=== PATIENT | female | born 1995 | race Caucasian/White ===

== ENCOUNTER 2017-05-04 02:51 | Inpatient (IN) ==
[2017-05-04] MEDS ORDERED: Pantoprazole 40 MG in 0.9 % Sodium Chloride Mini Bag 100 ML IVC SCH (06:15)
[2017-05-04] MEDS: Pantoprazole 80 MG in 0.9 % Sodium Chloride 250 ML IVC SCH ×2 (08:25→22:14)
[2017-05-04] MEDS: D5% in 0.9% NACL 1,000 ML IVC SCH ×3 (08:25→22:25)
--- NOTE | 2017-05-04 10:50 | Internal Med History&Physical ---
<RafiqMehran - Last Filed: 05/04/17 15:45> Date of Encounter: 05/04/17 Time of Encounter: 10:48 Assessment and Plan (1) GI bleed Current visit: No Status: Acute Given her melena and hematochezia it certainly appears to be upper GI source Will consult surgery for possible EGD Continue with NPO and maintenance fluids until post-procedure PPI drip and carafate per surgery Repeat Hb was 7.1, down from 8.7 initially; will check H/H after she receives 1 unit pRBC Qualifiers: GI bleed type/associated pathology: gastrointestinal hemorrhage with hematemesis Qualified Code(s): K92.0 - Hematemesis (2) Acute blood loss anemia Current visit: Yes Status: Acute Plan as above with surgery consult for possible EGD Will closely monitor vitals and Hb/Hct after receiving transfusion (3) Anxiety Current visit: Yes Status: Chronic Stable, continue home Celexa and Trazodone Internal Medicine - H&P: HPI Chief complaint: hematemesis, melena Admitted From: Home Plans for Post Hospital Care: Home History of present illness: Ms. Balderas is a 21 year old female who presents from [place] ED after an episode of melena and hematemesis last night at 10 PM. She states she only had one episode of dark black stool and shortly after became nauseous and had 3 episodes of bright red vomiting. She denied any pain during vomiting or defecation, and did not have any syncope or lightheadedness. She does admit to using Ibuprofen about twice a week for several years for back pain and is also on Citalopram and Trazadone for anxiety, but otherwise has no medical history. She does not report any family history of bleeding disorders but grandmother states she had ulcers when she was younger. Patient denies recent changes in medication, diet, or travel. Does not have any chest pain, shortness of breath, current nausea, fever, chills. Past Med Surg Social Fam HX - Past Medical History Medical history: other Psychiatric history: anxiety - Social History Smoking Status: Never smoker Smokeless Tobacco Status: No Alcohol use: none Drug use: none - Family History Mother Hx Family Endocrine Disorder: Yes (hypothyroid) Father Living Status: Still Living Grandmother Living Status: Still Living Hx Family GI Disorders: Yes (Duondenal ulcer at a young age) Internal Medicine - H&P: Meds Citalopram [CeleXA] 20 mg PO DAILY 05/04/17 [History] traZODone [TraZODone] 50 mg PO HS 05/04/17 [History] 3 Allergy/AdvReac Type Severity Reaction Status Date / Time No Known Allergies Allergy Verified 05/04/17 06:48 All Systems PM: A 10-system review of systems was performed and is negative for pertinent findings except as documented above in the HPI. - Constitutional Constitutional: lethargy, no chills, no fever(s), no night sweats - EENT Eyes: no change in vision, no discharge, no pain, no photophobia Ears: no ear discharge, no ear pain, no tinnitus Nose, mouth and throat: no dysphagia, no nasal discharge, no neck pain, no sore throat - Cardiovascular Cardiovascular ROS IM: no chest pain, no diaphoresis, no dyspnea, no lightheadedness, no palpitations, no syncope - Respiratory Respiratory: no cough, no dyspnea, no wheezing, no excessive phlegm production - Gastrointestinal Gastrointestinal: hematemesis, melena, nausea, vomiting, no abdominal pain, no diarrhea, no hematochezia - Genitourinary Genitourinary: no change in urinary stream, no dysuria, no flank pain, no hematuria - Musculoskeletal Musculoskeletal ROS IM: no numbness, no tingling - Integumentary Integumentary IM: no rash, no unusual bruising - Neurological Neurological ROS: no confusion, no convulsions, no focal weakness, no numbness, no tingling, no tremor(s) - Hematologic/Lymphatic Hematologic/Lymphatic: no easy bruising - Constitutional Vitals: Temp Pulse Resp BP Pulse Ox 98.3 F 104 14 101/79 96 05/04/17 07:37 05/04/17 07:37 05/04/17 07:37 05/04/17 07:37 05/04/17 07:37 General appearance: Present: cooperative, pleasant, no acute distress, answers questions appropriately - Head Head exam: Present: atraumatic, normocephalic - Eye Eye exam: Present: PERRL, conjuntiva pink, sclera anicteric - Neck Neck exam general surgery: Present: supple, trachea midline. Absent: lymphadenopathy - Respiratory Respiratory exam: Present: CTAB. Absent: accessory muscle use, rales, rhonchi, wheezes - Cardiovascular Cardiovascular exam: Present: RRR, +S1, +S2. Absent: diastolic murmur, gallop, rubs, systolic murmur - GI/Abdominal GI/Abdominal exam: Present: normal bowel sounds, soft, no peritoneal signs. Absent: distended, tenderness - Extremities Exam Extremities exam: Present: warm, radial pulses palpable and symmetrical. Absent : calf tenderness, cyanotic, pedal edema - Neurological Exam Neurological exam: Present: alert, no focal deficits. Absent: facial droop, speech deficit - Skin Skin exam: Present: dry, intact Internal Med - H&P Results - Labs CBC & Chem 7: 05/04/17 11:16 <Desean Alva - Last Filed: 05/04/17 18:36> Date of Encounter: 05/04/17 Internal Medicine - H&P: HPI History of present illness: Ms. Balderas is a 21 year old female All Systems PM: A 10-system review of systems was performed and is negative for pertinent findings except as documented above in the HPI. - Constitutional Vitals: Temp Pulse Resp BP Pulse Ox 98.3 F 102 16 132/86 100 05/04/17 17:17 05/04/17 17:17 05/04/17 17:02 05/04/17 17:17 05/04/17 17:17 Internal Med - H&P Results - Labs CBC & Chem 7: 05/04/17 16:11 Labs: Short CBC 05/04/17 05/04/17 Range/Units 11:16 16:11 WBC 7.6 (4.3-11.1) K/mcL Hgb 7.1 L D 6.8 L (11.5-15.4) g/dL Hct 22.4 L 21.7 L (35.3-44.9) % Plt Count 318 (140-400) K/mcL Neutrophils # 4.5 (1.6-8.9) K/mcL - Impressions ITS Impressions KUB X-Ray 05/04/17 16:01 IMPRESSION: Enteric tube in the stomach as above. No evidence of bowel obstruction. D/ / Rogers Lopez MD / Rogers Lopez MD Interpreting Provider: Rogers Lopez MD - Attending Attestation I conducted a face to face diagnostic evaluation of this patient and my medical decision-making was reviewed with the Resident Physician, Dr Mehran Conroy. I agree with the documented findings, disposition and treatment plan as described except to the extent set forth below: Patient here for GI bleed. She will be nothing by mouth. IV Protonix. IV fluids. Consult to surgery. I discussed the case with surgery. They are planning for EGD today. Desean Alva MD
[2017-05-04] MEDS ORDERED: Ondansetron 4 MG/2 ML VIAL IVP PRN (10:55)
[2017-05-04] MEDS ORDERED: Naloxone 0.4 MG/ML INJ IVP PRN (10:55)
[2017-05-04] MEDS ORDERED: Acetaminophen 325 MG TABLET PO PRN (10:55)
[2017-05-04] MEDS ORDERED: 0.9 % Sodium Chloride 1,000 ML IVC SCH (11:00)
--- NOTE | 2017-05-04 11:14 | Anesthesia Evaluation PreOp ---
Date of Encounter: 05/04/17 Time of Encounter: 11:12 - Past History Planned Operation: EGD Cardiac History: Denies any Significant Hx Pulmonary History: Denies Any Significant HX POT ROOM SUPERVISOR History: Denies Any Significant HX Other Medical History: Denies Any Significant HX Anesthesia History: Past Anesthesia (none) Alcohol Use: none Drug use: none Medications and Allergies Citalopram [CeleXA] 20 mg PO DAILY 05/04/17 [History] traZODone [TraZODone] 50 mg PO HS 05/04/17 [History] 3 Allergy/AdvReac Type Severity Reaction Status Date / Time No Known Allergies Allergy Verified 05/04/17 06:48 - Meds/Allergy Pre-op Review Medications Reviewed: Yes Allergies Reviewed: Yes Beta Blockers on Current Med List: No Anesthesia Exam Selected Entries 05/04/17 10:53 Temperature 98.5 F Pulse Rate 102 Respiratory Rate 17 Blood Pressure 110/75 O2 Sat by Pulse Oximetry 100 Weight: 68kg NPO (# of Hours): 8 - POT ROOM SUPERVISOR LOC: Oriented POT ROOM SUPERVISOR Motor: Normal RUE, Normal LUE, Normal RLE, Normal LLE, Normal Face POT ROOM SUPERVISOR Sensory: Normal: RUE, LUE, RLE, LLE, Face - Cardiac Rhythm: Regular Murmur: None - Pulmonary Breath Sounds: bilateral Clear Respiratory Effort: Symmetrical Anesthesia Assess/Plan ASA Score: 1 Modified Catherine Scale for Level of Consciousness: Cooperative, oriented, and tranquil Anesthetic Plan: MAC Monitoring Plan: Standard Monitors Recovery Plan: Other (agrees to MAC)
[2017-05-04 11:48] LABS: Basophils % 0.3 %; Eosinophils # 0.2 K/mcL (0.0-0.6); Eosinophils % 2.6 %; Hematocrit 22.4 % (35.3-44.9); Hemoglobin 7.1 g/dL (11.5-15.4); Immature Granulocytes % 0.5 % (0-4); Lymphocytes # 2.3 K/mcL (0.6-4.6); Lymphocytes % 30.4 %; Mean Corpuscular HGB Conc 31.7 g/dL (31.6-35.5); Mean Corpuscular Hemoglobin 24.4 pg (28.0-33.3); Mean Platelet Volume 11.1 fL (9.4-12.4); Monocytes # 0.6 K/mcL (0.0-1.3); Monocytes % 7.9 %; Neutrophils # 4.5 K/mcL (1.6-8.9); Platelet Count 318 K/mcL (140-400); Red Blood Count 2.91 M/mcL (3.82-4.97); Red Cell Distribution Width 16.5 % (11.5-14.5); Segmented Neutrophils % 58.3 %
[2017-05-04 12:15] LABS: % Iron Saturation 5 % (15-50); Ferritin < 8 ng/ml (10-120); Iron 17 mcg/dL (50-170); Transferrin 257 mg/dL (203-362)
--- NOTE | 2017-05-04 14:07 | General Surgery Consult Note ---
Date of Encounter: 05/04/17 Time of Encounter: 14:00 Assessment and Plan (1) GI bleed Current Visit: No Status: Acute NPO for endoscopy IV fluids- 125ml/hour 1 Units of PRBC ordered per the hospitalist Monitor Hgb/Hct PPI therapy Carafate QID H. Pylori testing Plan for EGD with Dr. Callahan- risks, benefits, alternatives, expected outcomes were reviewed with the patient and she is in agreement to proceed with endoscopy. Qualifiers: GI bleed type/associated pathology: gastrointestinal hemorrhage with hematemesis Qualified Code(s): K92.0 - Hematemesis (2) Acute blood loss anemia Current Visit: Yes Status: Acute Hgb- 8.7>7.1 1 units of PRBC ordered per hospitalist Monitor Hgb/Hct History of Present Illness Consult date: 05/04/17 Reason for consult: other (GI bleeding) Requesting physician: Desean Alva History of present illness: Ms. Balderas is a very pleasant 21 year old female who presented to [place] ED last evening with complaints of vomiting up bright red blood. She was transferred to [facility] for further workup and treatment. Her hemoglobin on initial presentation was 8.7 and her repeat level today is 7.1. She reports that she first went to the bathroom and had a bowel movement which she noticed was black in color. She states this was abnormal for her but she did not think too much about it. She states that she laid down to go to bed and she had an overwhelming sense of nausea. She states that she went to the bathroom and vomited large amounts of bright red blood on 4 different occasions. She admits to some cramping abdominal pain at that time but she states that she has no abdominal pain today. She has had no further bowel movements today. She denies ever having symptoms like this in the past. She states that her appetite is normal and that she feels like she could eat today. She is requesting macaroni and cheese. She did feel lightheaded and dizzy after the episodes of vomiting last evening but states that this has improved today. She denies any syncope. She denies any chest pain or shortness of breath. She denies any recent fevers or chills. She states that she does take ibuprofen on and off for the last several years for management of headaches and back discomfort. She has never had an endoscopy procedure complete before. Past Med Surg Social Fam HX - Past Medical History Source: patient Medical history: migraine, other (back pain) Psychiatric history: anxiety - Past Surgical History Surgical History: other (Tonsillectomy) - Social History Smoking Status: Never smoker Smokeless Tobacco Status: No Alcohol use: none Drug use: none Occupational status: student Current living situation: Home - Independent Activity Level: Independent ambulation - Family History Mother Living Status: Still Living Hx Family Endocrine Disorder: Yes (hypothyroid) Father Living Status: Still Living Grandmother Living Status: Still Living Hx Family GI Disorders: Yes (Duondenal ulcer at a young age) Medications and Allergies Citalopram [CeleXA] 20 mg PO DAILY 05/04/17 [History] traZODone [TraZODone] 50 mg PO HS 05/04/17 [History] 3 Allergy/AdvReac Type Severity Reaction Status Date / Time No Known Allergies Allergy Verified 05/04/17 06:48 Review of Systems All systems PM: reviewed and no additional remarkable complaints except as stated (in the HPI) All systems PM: A 10-system review of systems was performed and is negative for pertinent findings except as documented above in the HPI. General Surgery Exam Initial Vital Signs Temp Pulse Resp BP Pulse Ox 98.8 F 114 16 125/79 100 05/04/17 05:07 05/04/17 05:07 05/04/17 05:07 05/04/17 05:07 05/04/17 05:07 - General physical appearance well developed, well nourished, no distress, no pain - Eyes PERRL, normal ocular movement, pale - ENT normal mucosa, atraumatic, normocephalic - Neck trachea midline - Respiratory normal expansion, normal respiratory effort, clear to auscultation - Cardiovascular Cardiovascular exam: Present: tachycardia - Abdomen Abdomen general surgery: Present: bowel sounds present, soft, non tender - Integumentary Integumentary general surgery: Present: warm and dry - Neurologic Present: CN 2-12 grossly intact - Musculoskeletal Present: normal gait, normal posture - Psychiatric Psychiatric general surgery: Present: appropriate, oriented to person, oriented to place, oriented to time, speech is normal, memory intact Exam Initial Vital Signs Temp Pulse Resp BP Pulse Ox 98.8 F 114 16 125/79 100 05/04/17 05:07 05/04/17 05:07 05/04/17 05:07 05/04/17 05:07 05/04/17 05:07 Results - Labs 05/04/17 11:16 Abnormal lab results RBC 2.91 M/mcL (3.82-4.97) L 05/04/17 11:16 Hgb 7.1 g/dL (11.5-15.4) L D 05/04/17 11:16 Hct 22.4 % (35.3-44.9) L 05/04/17 11:16 MCV 77.0 fL (83.0-100.0) L 05/04/17 11:16 MCH 24.4 pg (28.0-33.3) L 05/04/17 11:16 RDW 16.5 % (11.5-14.5) H 05/04/17 11:16 Iron 17 mcg/dL (50-170) L 05/04/17 11:16 % Saturation 5 % (15-50) L 05/04/17 11:16 Ferritin < 8 ng/ml (10-120) L 05/04/17 11:16 All other labs normal. Consult Discharge Plan - Plan Referrals: Bria Matt ADOPTION WORKER [Primary Care Provider] - - Attending Attestation For this encounter, I have reviewed the SUPERVISOR LINE DEPARTMENT or PA documentation, treatment plan, and medical decision making; and I have had face to face time with this patient.
[2017-05-04] MEDS ORDERED: *HR* FentaNYL (PF) 100 MCG/2 ML VIAL ONE (15:03)
[2017-05-04] MEDS ORDERED: *HR* Midazolam HCl 5 MG/5 ML VIAL IVP ONE ×2 (15:03→15:44)
[2017-05-04] MEDS ORDERED: *HR* FentaNYL (PF) 100 MCG/2 ML VIAL IVP ONE (15:44)
[2017-05-04] MEDS ORDERED: Tetracaine/Benzocaine/Butamben 200MG/SPRAY (100SPY/BOT) MM ONE (15:44)
--- NOTE | 2017-05-04 15:44 | Pre-Sedation Evaluation ---
Pre-sedation evaluation - Pre-sedation checklist Date of procedure: 05/04/17 Procedure: EGD Recent Vitals: Last Vital Signs Temp 98.7 F 05/04/17 15:12 Pulse 104 05/04/17 15:40 Resp 16 05/04/17 15:40 BP 128/80 05/04/17 15:40 Pulse Ox 100 05/04/17 15:40 H&P (including ROS) documented in medical record: Yes Previous reaction to sedatives/anesthetics: No Dietary Status: NPO after Midnight Dentition: No loose teeth or bridges Possible difficult airway: No ASA Classification *see protocol: CLASS II-Mild systemic disease
[2017-05-04] MEDS ORDERED: Chloraseptic Spray 177 ML BOTTLE MM PRN (16:02)
[2017-05-04 16:21] LABS: Hematocrit 21.7 % (35.3-44.9); Hemoglobin 6.8 g/dL (11.5-15.4)
[2017-05-04] MEDS ORDERED: 0.9 % Sodium Chloride 250 ML ONE (16:49)
[2017-05-04] MEDS ORDERED: *HR* Morphine 2 MG/ML SYRINGE IVP PRN ×2 (19:40→19:53)
[2017-05-04] MEDS ORDERED: *HR* Morphine 2 MG/ML SYRINGE IVP SCH (20:00)
[2017-05-04] MEDS ORDERED: traZODone 50 MG TABLET PO SCH (21:00)
[2017-05-04] MEDS ORDERED: Sucralfate 1 GM TABLET PO SCH (22:00)
[2017-05-05] MEDS: D5% in 0.9% NACL 1,000 ML IVC SCH (06:03)
[2017-05-05 06:28] LABS: Basophils % 0.4 %; Eosinophils # 0.5 K/mcL (0.0-0.6); Eosinophils % 7.6 %; Hematocrit 25.3 % (35.3-44.9); Hemoglobin 8.1 g/dL (11.5-15.4); Immature Granulocytes % 0.6 % (0-4); Immature Platelets 8.9 % (1.1-6.1); Lymphocytes # 2.6 K/mcL (0.6-4.6); Lymphocytes % 36.9 %; Mean Corpuscular Hemoglobin 24.8 pg (28.0-33.3); Mean Corpuscular Volume 77.6 fL (83.0-100.0); Mean Platelet Volume 11.8 fL (9.4-12.4); Monocytes # 0.5 K/mcL (0.0-1.3); Monocytes % 6.6 %; Platelet Count 199 K/mcL (140-400); Red Blood Count 3.26 M/mcL (3.82-4.97); Red Cell Distribution Width 16.6 % (11.5-14.5); Segmented Neutrophils % 47.9 %
[2017-05-05 06:46] LABS: Neutrophils # 3.4 K/mcL (1.6-8.9)
[2017-05-05 06:48] LABS: Platelet Estimate Normal (Normal); Reactive Lymphocytes Present (Not Present)
[2017-05-05] MEDS: Pantoprazole 80 MG in 0.9 % Sodium Chloride 250 ML IVC SCH ×2 (06:54→10:23)
[2017-05-05 06:59] LABS: BUN/Creatinine Ratio 17 (6-26); Blood Urea Nitrogen 11 mg/dL (6-20); Calcium 8.3 mg/dL (8.6-10.3); Carbon Dioxide 16 mEq/L (23-29); Chloride 118 mEq/L (98-107); Glucose 113 mg/dL (70-105); Osmolality,Calculated 300 (280-300); Potassium 4.6 mEq/L (3.5-5.1); Sodium 145 mEq/L (136-145); eGFR For African Americans > 60; eGFR For Non-African Americans > 60
--- NOTE | 2017-05-05 09:19 | General Surgery Progress Note ---
Date of Encounter: 05/05/17 Time of Encounter: 09:13 - Assessment and Plan (1) Duodenal ulcer Current Visit: Yes Status: Acute EGD performed by Dr. Callahan 05/04/17 - non-bleeding duodenal ulcer [address] abd/pelvies 05/04/17 - Severe wall thickening and inflammatory change involving the duodenal bulb and proximal descending duodenum. Patient is currently stable, and symptoms, melena, and hematochezia have resolved. Source of bleed is most likely from duodenal ulcer. - H Pylori urease culture - pending. If positive, will start H Pylori treatment. - continue bowel rest - acute abdominal series - pending. If contrast has passed, NG tube can be D/C' ed, and started on liquid diet. - continute PPI therapy and carafate QID - continue IV fluids 125 ml/hr - will continue to trend H+H (2) Acute blood loss anemia Current Visit: Yes Status: Acute Patient received PRBC 05/04/17. Hgb 6.8 -> 7.1 -> 8.1. Patient is improving. Patient denies symptoms of anemia, and currently does not display symptoms on Physical exam. - will closely follow H+H - if symptomatic or Hgb <7, PRBC is recommended Subjective Patient reports: no new complaints, feels better, voiding w/o difficulty, flatus , no bowel movement, afebrile Narrative: 21 yo female admit day 2 for GI bleed. Patient received EGD and Ct w/contrast yesterday. On EGD one non-bleeding duodenal ulcer 20 mm in diameter was seen. Patient received 1 unit PRBC, hgb went from 7.1->8.1. No events overnight or new complaints. Patient has not had a bowel movement. She denies nausea, vomiting or abdominal pain today, and reports feeling better. She states she's hungry and would like to eat. Objective Vital Signs - Last 8 Hours Temp Pulse Resp BP Pulse Ox 05/05/17 06:54 98.0 F 98 20 118/80 100 05/05/17 03:56 98.2 F 105 18 119/80 100 Intake and Output 05/04/17 05/05/17 05/05/17 23:59 07:59 15:59 Intake Total 1750 / 1750 1000 / 1000 Balance 1750 / 1750 1000 / 1000 Intake: IV Fluids 1250 / 1250 1000 / 1000 D5% And 0.9% Nacl 1000 Ml 1,000 1000 / 1000 1000 / 1000 ML @ 125 mls/hr IVC .Q8H [facility] Rx#:[id number] Protonix 80 MG In 0.9 % Sodium 250 / 250 Chloride 250 ML @ 25 mls/hr IVC .Q10H [facility] Rx#:[id number] Blood Product 500 / 500 Rbcs Leuko Poor As-1 Unit 500 / 500 [id number] Other: Weight 70.307 kg Patient Weight 05/05/17 23:59 Weight 70.307 kg - General physical appearance well developed, well nourished, no distress - ENT normal mucosa - Neck Neck exam: no masses, no bruits, trachea midline, no lymphadectomy, no venous distension - Respiratory normal expansion, normal respiratory effort, clear to percussion, clear to auscultation - Cardiovascular Cardiovascular exam: Present: RRR. Absent: irregular rhythm, murmurs - Abdomen Abdomen: Present: soft, non tender. Absent: bowel sounds present, distended, tender, organomegaly, masses, guarding, rebound, rigid, surgical scars, wound, peritoneal, organomegaly - Integumentary no rash, no growths, no abnormal pigmentation - Neurologic normal coordination, normal sensation - Psychiatric oriented to time, oriented to person, oriented to place, speech is normal, memory intact - Labs 05/05/17 06:13 05/05/17 06:13 Diabetes panel 05/05/17 Range/Units 06:13 Sodium 145 (136-145) mEq/L Potassium 4.6 (3.5-5.1) mEq/L Chloride 118 H (98-107) mEq/L Carbon Dioxide 16 L (23-29) mEq/L BUN 11 (6-20) mg/dL Creatinine 0.66 (0.60-1.20) mg/dL Glucose 113 H (70-105) mg/dL Calcium 8.3 L (8.6-10.3) mg/dL Calcium panel 05/05/17 Range/Units 06:13 Calcium 8.3 L (8.6-10.3) mg/dL Pituitary panel 05/05/17 Range/Units 06:13 Sodium 145 (136-145) mEq/L Potassium 4.6 (3.5-5.1) mEq/L Chloride 118 H (98-107) mEq/L Carbon Dioxide 16 L (23-29) mEq/L BUN 11 (6-20) mg/dL Creatinine 0.66 (0.60-1.20) mg/dL Glucose 113 H (70-105) mg/dL Calcium 8.3 L (8.6-10.3) mg/dL Adrenal panel 05/05/17 Range/Units 06:13 Sodium 145 (136-145) mEq/L Potassium 4.6 (3.5-5.1) mEq/L Chloride 118 H (98-107) mEq/L Carbon Dioxide 16 L (23-29) mEq/L BUN 11 (6-20) mg/dL Creatinine 0.66 (0.60-1.20) mg/dL Glucose 113 H (70-105) mg/dL Calcium 8.3 L (8.6-10.3) mg/dL - Imaging CT scan - abdomen: report reviewed, image reviewed Additional Studies: EGD reviewed Consult Discharge Plan - Plan Referrals: Bria Matt, TALENT ACQUISITION CONSULTANT [Primary Care Provider] -
--- NOTE | 2017-05-05 13:21 | Event Note ---
Date of Encounter: 05/05/17 Time of Encounter: 13:00 CT and abdominal series reviewed. Contrast have moved through to the small bowel and colon. Patient has had no evidence of ongoing GI bleeding. Hgb is stable at 8.1 this morning. Plan- remove NG tube, start full liquid diet, saline lock IV fluids, transition to Protonix BID dosing. Will repeat Hgb/Hct in the am.
[2017-05-05] MEDS ORDERED: Iron Sucrose Complex 400 MG in 0.9 % Sodium Chloride 250 ML IVPB ONE (14:00)
--- NOTE | 2017-05-05 14:07 | Internal Med Progress Note ---
Date of Encounter: 05/05/17 Time of Encounter: 14:03 - Assessment and plan (1) Acute blood loss anemia Current Visit: Yes Status: Acute Assessment and plan: Monitor hemoglobin and hematocrit. Transfuse if hemoglobin is less than 7. Iron studies reviewed show iron deficiency anemia. I will order 1 dose of IV iron sucrose. Recommend iron rich diet outpatient. (2) Anxiety Current Visit: Yes Status: Chronic Assessment and plan: I discussed the case with psychiatry. They recommended discontinuing citalopram and trazodone and starting clonazepam. Vistaril can be used for sleep (3) Duodenal ulcer Current Visit: Yes Status: Acute Assessment and plan: Continue with PPI twice daily and Carafate. - Subjective Interval history: Patient had upper endoscopy done yesterday found duodenal ulcer. She reports no further hematemesis. Denies abdominal pain. She states that she takes citalopram for anxiety, denies symptoms of depression. She states that she takes trazodone for insomnia which started once she initiated treatment with citalopram. - Constitutional Vitals: Temp Pulse Resp BP Pulse Ox 98.3 F 93 16 141/84 97 05/05/17 10:58 05/05/17 10:58 05/05/17 10:58 05/05/17 10:58 05/05/17 10:58 General appearance: Present: cooperative, A&O X 3, pleasant, no acute distress, answers questions appropriately - Respiratory Respiratory exam: Present: CTAB. Absent: accessory muscle use, rales, rhonchi, wheezes - Cardiovascular Cardiovascular exam: Present: RRR, +S1, +S2. Absent: diastolic murmur, gallop, rubs, systolic murmur - GI/Abdominal GI/Abdominal exam: Present: normal bowel sounds, soft, no peritoneal signs. Absent: distended, tenderness - Skin Skin exam: Present: dry, intact Internal Medicine: Result - Labs CBC & Chem 7: 05/06/17 05:42 05/06/17 05:42 Labs: Short CBC 05/04/17 05/05/17 Range/Units 16:11 06:13 WBC 7.0 (4.3-11.1) K/mcL Hgb 6.8 L 8.1 L (11.5-15.4) g/dL Hct 21.7 L 25.3 L (35.3-44.9) % Plt Count 199 (140-400) K/mcL Neutrophils # 3.4 (1.6-8.9) K/mcL BMP 05/05/17 06:13 Sodium 145 Potassium 4.6 Chloride 118 H Carbon Dioxide 16 L BUN 11 Creatinine 0.66 Glucose 113 H Calcium 8.3 L - Impressions Impressions KUB X-Ray 05/04/17 16:01 IMPRESSION: Enteric tube in the stomach as above. No evidence of bowel obstruction. D/ / Rogers Lopez MD / Rogers Lopez MD Interpreting Provider: Rogers Lopez MD Abdomen/Pelvis CT 05/04/17 18:40 IMPRESSION: 1. Severe wall thickening and inflammatory change involving the duodenal bulb and proximal descending duodenum, most consistent with either duodenitis, peptic ulcer disease, or duodenal malignancy. Suggest clinical correlation, formal GI consultation, and upper endoscopy for further evaluation. 2. 3 mm nonobstructing calculus within the left kidney lower pole, without evidence of a ureteral calculus or hydronephrosis. D/ / 05/04/2017 19:53:36 Don Barros MD / Reyna Pool Interpreting Provider: Don Barros MD Chest/Abdomen X-ray 05/05/17 09:06 IMPRESSION: 1. No acute cardiopulmonary disease. 2. Nonobstructive bowel gas pattern. 3. The nasogastric tube is coiled within the proximal stomach, similar to yesterday's CT. D/ / Don Parra MD / Don Parra MD Interpreting Provider: Don Parra MD Consult Discharge Plan - Plan Instructions: Diet for Ulcers and Gastritis (GEN) Referrals: Bria Matt CNP [Primary Care Provider] - 05/12/17 4:00 pm Prescriptions: clonazePAM [Klonopin] 0.5 mg PO BID PRN #60 tablet PRN Reason: Anxiety
--- NOTE | 2017-05-05 14:17 | Discharge Summary ---
Date of Encounter: 05/05/17 - Discharge Diagnosis (1) Acute blood loss anemia Status: Acute (2) Anxiety Status: Chronic (3) Duodenal ulcer Status: Acute - Discharge Medications Prescriptions: clonazePAM [Klonopin] 0.5 mg PO BID PRN #60 tablet PRN Reason: Anxiety Home Medications: clonazePAM [Klonopin] 0.5 mg PO BID PRN #60 tablet 05/05/17 [Rx] Allergies/Adverse Reactions: 3 Allergy/AdvReac Type Severity Reaction Status Date / Time No Known Allergies Allergy Verified 05/04/17 06:48 Procedures/tests Complete & Pending: Procedures Performed prior 72 hours Category Date Time Status CT abd pelvis wo iv oral only [CT] Stat Cat Scan 05/04/17 18:40 Completed Date of admission: 05/04/17 16:00 Primary care physician: Bria Matt CNP Consults: 05/04/17 11:03 Consult to Surgery [CONS] Routine Consulting Provider: [facility] Reason for Consult: upper GI bleed Time Notified: 11:04 Call Completed: Yes 05/04/17 18:35 Consult to Invasive Line Access Team [CONS] Routine Reason for Consult: Limited vascular access Line Type: EPIV - Discharge Instructions Follow Up With: Bria Matt CNP [Primary Care Provider] - 05/12/17 4:00 pm Hospital course: Ms. Balderas is a 21 year old female - Time Spent with Patient Total time spent providing and/or coordinating discharge services: - Constitutional Vitals: Temp Pulse Resp BP Pulse Ox 98.3 F 93 16 141/84 97 05/05/17 10:58 05/05/17 10:58 05/05/17 10:58 05/05/17 10:58 05/05/17 10:58 General appearance: Present: cooperative, A&O X 3, pleasant, no acute distress, answers questions appropriately
[2017-05-05] MEDS: clonazePAM 0.5 MG TABLET PO PRN ×2 (15:01→22:10)
[2017-05-05] MEDS: Pantoprazole 40 MG VIAL IVP SCH (17:12)
[2017-05-06] MEDS: Pantoprazole 40 MG VIAL IVP SCH (05:05)
[2017-05-06 06:04] LABS: Hematocrit 24.7 % (35.3-44.9); Hemoglobin 7.9 g/dL (11.5-15.4)
[2017-05-06 07:30] LABS: Alanine Aminotransferase 9 Units/L (7-52); Albumin 3.4 g/dL (3.5-5.7); Albumin/Globulin Ratio 1.5 (1.1-2.2); Alkaline Phosphatase 56 Units/L (34-104); Aspartate Amino Transferase 16 Units/L (13-39); BUN/Creatinine Ratio 13 (6-26); Bilirubin,Total 0.5 mg/dL (0.3-1.0); Blood Urea Nitrogen 9 mg/dL (6-20); Carbon Dioxide 18 mEq/L (23-29); Chloride 114 mEq/L (98-107); Globulin 2.2 g/dL (2.4-3.5); Potassium 4.2 mEq/L (3.5-5.1); Sodium 142 mEq/L (136-145); Total Protein 5.6 g/dL (6.4-8.9); eGFR For African Americans > 60; eGFR For Non-African Americans > 60
[2017-05-06 07:46] LABS: Basophils # 0.1 K/mcL (0.0-0.2); Basophils % 0.7 %; Eosinophils # 0.6 K/mcL (0.0-0.6); Eosinophils % 8.4 %; Immature Granulocytes % 0.8 % (0-4); Lymphocytes # 2.3 K/mcL (0.6-4.6); Lymphocytes % 30.3 %; Mean Corpuscular HGB Conc 33.3 g/dL (31.6-35.5); Mean Corpuscular Hemoglobin 25.2 pg (28.0-33.3); Mean Corpuscular Volume 75.5 fL (83.0-100.0); Mean Platelet Volume 11.9 fL (9.4-12.4); Monocytes # 0.7 K/mcL (0.0-1.3); Monocytes % 9.4 %; Neutrophils # 3.8 K/mcL (1.6-8.9); Platelet Count 220 K/mcL (140-400); Red Blood Count 3.18 M/mcL (3.82-4.97); Red Cell Distribution Width 16.5 % (11.5-14.5); Segmented Neutrophils % 50.4 %
[2017-05-06 09:07] LABS: Glucose 90 mg/dL (70-105); Osmolality,Calculated 292 (280-300)
--- NOTE | 2017-05-06 09:27 | General Surgery Progress Note ---
Date of Encounter: 05/06/17 Time of Encounter: 09:24 - Assessment and Plan (1) Duodenal ulcer Current Visit: Yes Status: Acute EGD performed by Dr. Callahan 05/04/17 - non-bleeding duodenal ulcer [address] abd/pelvies 05/04/17 - Severe wall thickening and inflammatory change involving the duodenal bulb and proximal descending duodenum. Patient is currently stable, and symptoms, melena, and hematochezia have resolved. Source of bleed is most likely from duodenal ulcer. H Pylori urease culture - negative. - continute PPI therapy and carafate QID - start Ferrous Sulfate 325 qd - continue to trend H+H (2) Acute blood loss anemia Current Visit: Yes Status: Acute Patient received PRBC 05/04/17. Hgb 6.8 -> 7.1 -> 8.1 -> 7.9. Patient is improving. Patient denies symptoms of anemia, and currently does not display symptoms on Physical exam. - closely follow H+H - if symptomatic or Hgb <7, PRBC is recommended Subjective Patient reports: no new complaints, voiding w/o difficulty, afebrile Narrative: No events overnight or complaints. Patient states that she's feeling good, and is hungry. Patient denies fever, chills, nausea, abd pain, or vomiting Objective Vital Signs - Last 8 Hours Temp Pulse Resp BP Pulse Ox 05/06/17 06:27 98.3 F 93 16 120/76 100 05/06/17 03:25 98.0 F 104 18 107/72 98 Intake and Output 05/05/17 05/06/17 05/06/17 23:59 07:59 15:59 Output Total 900 / 900 Balance -900 / -900 Output: Urine 900 / 900 Other: Weight 69.853 kg Patient Weight 05/06/17 23:59 Weight 69.853 kg - General physical appearance well developed, well nourished, no distress, other (slight pale complexion) - Eyes PERRL, normal ocular movement - ENT normal pinna, normal nares, normal mucosa, no hearing loss, no congestion - Respiratory normal expansion, normal respiratory effort, clear to percussion, clear to auscultation - Cardiovascular Cardiovascular exam: Present: RRR - Abdomen Abdomen: Present: bowel sounds present, soft, non tender - Integumentary no rash, no growths, no abnormal pigmentation - Neurologic normal coordination, normal sensation - Psychiatric oriented to time, oriented to person, oriented to place, speech is normal, memory intact - Labs 05/06/17 05:42 05/06/17 05:42 Diabetes panel 05/06/17 Range/Units 05:42 Sodium 142 (136-145) mEq/L Potassium 4.2 (3.5-5.1) mEq/L Chloride 114 H (98-107) mEq/L Carbon Dioxide 18 L (23-29) mEq/L BUN 9 (6-20) mg/dL Creatinine 0.69 (0.60-1.20) mg/dL Glucose 90 (70-105) mg/dL Calcium 9.0 (8.6-10.3) mg/dL AST 16 (13-39) Units/L ALT 9 (7-52) Units/L Alkaline Phosphatase 56 (34-104) Units/L Albumin 3.4 L (3.5-5.7) g/dL Calcium panel 05/06/17 Range/Units 05:42 Calcium 9.0 (8.6-10.3) mg/dL Albumin 3.4 L (3.5-5.7) g/dL Pituitary panel 05/06/17 Range/Units 05:42 Sodium 142 (136-145) mEq/L Potassium 4.2 (3.5-5.1) mEq/L Chloride 114 H (98-107) mEq/L Carbon Dioxide 18 L (23-29) mEq/L BUN 9 (6-20) mg/dL Creatinine 0.69 (0.60-1.20) mg/dL Glucose 90 (70-105) mg/dL Calcium 9.0 (8.6-10.3) mg/dL Adrenal panel 05/06/17 Range/Units 05:42 Sodium 142 (136-145) mEq/L Potassium 4.2 (3.5-5.1) mEq/L Chloride 114 H (98-107) mEq/L Carbon Dioxide 18 L (23-29) mEq/L BUN 9 (6-20) mg/dL Creatinine 0.69 (0.60-1.20) mg/dL Glucose 90 (70-105) mg/dL Calcium 9.0 (8.6-10.3) mg/dL Total Bilirubin 0.5 (0.3-1.0) mg/dL AST 16 (13-39) Units/L ALT 9 (7-52) Units/L Alkaline Phosphatase 56 (34-104) Units/L Albumin 3.4 L (3.5-5.7) g/dL Consult Discharge Plan - Plan Instructions: Diet for Ulcers and Gastritis (GEN) Referrals: Bria Matt CNP [Primary Care Provider] - 05/12/17 4:00 pm Prescriptions: clonazePAM [Klonopin] 0.5 mg PO BID PRN #60 tablet PRN Reason: Anxiety
[2017-05-06 10:43] VITALS: BP 114/80
--- NOTE | 2017-05-06 10:48 | Discharge Summary ---
<Stanislaw Aguirre - Last Filed: 05/06/17 10:39> Date of Encounter: 05/06/17 Time of Encounter: 10:39 - Discharge Diagnosis (1) Duodenal ulcer Priority: Primary Status: Acute (2) Acute blood loss anemia Priority: Secondary Status: Acute - Discharge Medications Prescriptions: Lactose-Reduced Food [Ensure Active Clear] 1 bottle PO TID #42 can Omeprazole [PriLOSEC] 40 mg PO BID #60 cap Sucralfate [Carafate] 1 gm PO QID #120 oral.susp Home Medications: Lactose-Reduced Food [Ensure Active Clear] 1 bottle PO TID #42 can 05/06/17 [Rx] Omeprazole [PriLOSEC] 40 mg PO BID #60 cap 05/06/17 [Rx] Sucralfate [Carafate] 1 gm PO QID #120 oral.susp 05/06/17 [Rx] Allergies/Adverse Reactions: 3 Allergy/AdvReac Type Severity Reaction Status Date / Time No Known Allergies Allergy Verified 05/04/17 06:48 General Surgery Exam Initial Vital Signs Temp Pulse Resp BP Pulse Ox 98.8 F 114 16 125/79 100 05/04/17 05:07 05/04/17 05:07 05/04/17 05:07 05/04/17 05:07 05/04/17 05:07 - General physical appearance well developed, well nourished (mild pallor), no distress - Eyes PERRL, normal ocular movement - ENT normal mucosa, no hearing loss, no congestion - Respiratory normal expansion, normal respiratory effort, clear to percussion, clear to auscultation - Cardiovascular Cardiovascular exam: Present: RRR, 15, 16 - Abdomen Abdomen general surgery: Present: bowel sounds present, soft, non tender - Integumentary Integumentary general surgery: Present: warm and dry, no abnormal pigmentation - Neurologic Present: normal coordination, normal sensation - Psychiatric Psychiatric general surgery: Present: appropriate, oriented to person, oriented to place, oriented to time, speech is normal, memory intact Date of admission: 05/04/17 16:00 Primary care physician: Bria Matt CNP Consults: 05/04/17 11:03 Consult to Surgery [CONS] Routine Consulting Provider: Surgery [facility] Reason for Consult: upper GI bleed Time Notified: 11:04 Call Completed: Yes 05/04/17 18:35 Consult to Invasive Line Access Team [CONS] Routine Reason for Consult: Limited vascular access Line Type: EPIV Discharging clinician: Stanislaw Aguirre Anticipated date of discharge: 05/06/17 - Patient Status Disposition: Home, Self-Care Condition: Good Functional capacity at discharge: independent ambulation Overall status at discharge: patient is progressing back to baseline - Discharge Instructions Instructions: Sucralfate (By mouth), Pantoprazole (By mouth), Diet for Ulcers and Gastritis (GEN) Follow Up With: Bria Matt CNP [Primary Care Provider] - 05/12/17 4:00 pm Juan Callahan DO [Partnered Physician] - 05/19/17 1:40 pm (hospital f/u; [facility]) Additional Instructions: Please take over the counter iron supplements daily. Take iron supplement with food with no other medications. - Diet and Activity Activity: increase activity as tolerated Diet: other (clear liquids for the next 2 weeks) - Hospital Course Hospital course: Ms. Balderas is a 21 year old female who presented to [place] on 05/03/17 with an episode of melena and hematemesis. Patient was transferred to [facility]. hgb was found to be 6.8. She received 1 unit PRBC, and her hgb remained stable ~8. Patient did not display symptoms of anemia during hospitalization. Endoscopy was performed and discovered a non-bleeding [address] abd/pelvis severe wall thickening and inflammatory changes were found on proximal descending duodenum. CXR showed no acute findings. Post CT follow up CXR confirmed that contrast had advanced through to colon. As precautionary measure, psych was consulted and trazodone and escitalopram was discontinued for potential cause of ulcer. Patient was also instructed to not take Aspirin at home. Patient is discharged with prescription for Carafate QID 3 mo, Protonix 40 BID 3 mo, Protein supplement for 2 weeks. Patient instructed to strictly remain Full liquid diet for the next two weeks. Patient will have EGD during Follow up appointment. Time spent discussing smoking cessation with patient: more than 10 minutes - Time Spent with Patient Total time spent providing and/or coordinating discharge services: Greater than 30 minutes Labs on day of discharge: Labs from last 24 hours 05/06/17 05/06/17 05:42 05:42 WBC 7.6 RBC 3.18 L Hgb 7.9 L Hct 24.7 L MCV 75.5 L MCH 25.2 L MCHC 33.3 RDW 16.5 H Plt Count 220 MPV 11.9 Immature Gran % 0.8 Seg Neutrophils % 50.4 Lymphocytes % 30.3 Monocytes % 9.4 Eosinophils % 8.4 Basophils % 0.7 Neutrophils # 3.8 Lymphocytes # 2.3 Monocytes # 0.7 Eosinophils # 0.6 Basophils # 0.1 Sodium 142 Potassium 4.2 Chloride 114 H Carbon Dioxide 18 L BUN 9 Creatinine 0.69 Est GFR ( Amer) > 60 Est GFR (Non-Af Amer) > 60 BUN/Creatinine Ratio 13 Glucose 90 Calculated Osmolality 292 Calcium 9.0 Total Bilirubin 0.5 AST 16 ALT 9 Alkaline Phosphatase 56 Serum Total Protein 5.6 L Albumin 3.4 L Globulin 2.2 L Albumin/Globulin Ratio 1.5 - Impressions ITS Impressions KUB X-Ray 05/04/17 16:01 IMPRESSION: Enteric tube in the stomach as above. No evidence of bowel obstruction. D/ / Rogers Lopez MD / Rogers Lopez MD Interpreting Provider: Rogers Lopez MD Abdomen/Pelvis CT 05/04/17 18:40 IMPRESSION: 1. Severe wall thickening and inflammatory change involving the duodenal bulb and proximal descending duodenum, most consistent with either duodenitis, peptic ulcer disease, or duodenal malignancy. Suggest clinical correlation, formal GI consultation, and upper endoscopy for further evaluation. 2. 3 mm nonobstructing calculus within the left kidney lower pole, without evidence of a ureteral calculus or hydronephrosis. D/ / 05/04/2017 19:53:36 Don Barros MD / Reyna Pool Interpreting Provider: Don Barros MD Chest/Abdomen X-ray 05/05/17 09:06 IMPRESSION: 1. No acute cardiopulmonary disease. 2. Nonobstructive bowel gas pattern. 3. The nasogastric tube is coiled within the proximal stomach, similar to yesterday's CT. D/ / Don Parra MD / Don Parra MD Interpreting Provider: Don Parra MD <Michelle Patel - Last Filed: 05/06/17 11:55> Date of Encounter: 05/06/17 - Discharge Diagnosis (1) GI bleed Priority: Primary Status: Resolved Qualifiers: GI bleed type/associated pathology: gastrointestinal hemorrhage with hematemesis Qualified Code(s): K92.0 - Hematemesis (2) Acute blood loss anemia Priority: Secondary Status: Acute (3) Duodenal ulcer Priority: Secondary Status: Acute General Surgery Exam Initial Vital Signs Temp Pulse Resp BP Pulse Ox 98.8 F 114 16 125/79 100 05/04/17 05:07 05/04/17 05:07 05/04/17 05:07 05/04/17 05:07 05/04/17 05:07 Date of admission: 05/04/17 16:00 Primary care physician: Bria Matt CNP Consults: 05/04/17 11:03 Consult to Surgery [CONS] Routine Consulting Provider: Surgery [facility] Reason for Consult: upper GI bleed Time Notified: 11:04 Call Completed: Yes 05/04/17 18:35 Consult to Invasive Line Access Team [CONS] Routine Reason for Consult: Limited vascular access Line Type: EPIV - Diet and Activity Diet: other (full liquids for the next 2 weeks; protein supplements (3 cans per day) for the next 2 weeks) - Hospital Course Hospital course: Ms. Balderas is a 21 year old female - Time Spent with Patient Total time spent providing and/or coordinating discharge services: Labs on day of discharge: Labs from last 24 hours 05/06/17 05/06/17 05:42 05:42 WBC 7.6 RBC 3.18 L Hgb 7.9 L Hct 24.7 L MCV 75.5 L MCH 25.2 L MCHC 33.3 RDW 16.5 H Plt Count 220 MPV 11.9 Immature Gran % 0.8 Seg Neutrophils % 50.4 Lymphocytes % 30.3 Monocytes % 9.4 Eosinophils % 8.4 Basophils % 0.7 Neutrophils # 3.8 Lymphocytes # 2.3 Monocytes # 0.7 Eosinophils # 0.6 Basophils # 0.1 Sodium 142 Potassium 4.2 Chloride 114 H Carbon Dioxide 18 L BUN 9 Creatinine 0.69 Est GFR ( Amer) > 60 Est GFR (Non-Af Amer) > 60 BUN/Creatinine Ratio 13 Glucose 90 Calculated Osmolality 292 Calcium 9.0 Total Bilirubin 0.5 AST 16 ALT 9 Alkaline Phosphatase 56 Serum Total Protein 5.6 L Albumin 3.4 L Globulin 2.2 L Albumin/Globulin Ratio 1.5 - Impressions ITS Impressions KUB X-Ray 05/04/17 16:01 IMPRESSION: Enteric tube in the stomach as above. No evidence of bowel obstruction. D/ / Rogers Lopez MD / Rogers Lopez MD Interpreting Provider: Rogers Lopez MD Abdomen/Pelvis CT 05/04/17 18:40 IMPRESSION: 1. Severe wall thickening and inflammatory change involving the duodenal bulb and proximal descending duodenum, most consistent with either duodenitis, peptic ulcer disease, or duodenal malignancy. Suggest clinical correlation, formal GI consultation, and upper endoscopy for further evaluation. 2. 3 mm nonobstructing calculus within the left kidney lower pole, without evidence of a ureteral calculus or hydronephrosis. D/ / 05/04/2017 19:53:36 Don Barros MD / Reyna Pool Interpreting Provider: Don Barros MD Chest/Abdomen X-ray 05/05/17 09:06 IMPRESSION: 1. No acute cardiopulmonary disease. 2. Nonobstructive bowel gas pattern. 3. The nasogastric tube is coiled within the proximal stomach, similar to yesterday's CT. D/ / Don Parra MD / Don Parra MD Interpreting Provider: Don Parra MD - Attending Attestation For this encounter, I have reviewed the [employer] or PA documentation, treatment plan, and medical decision making; and I have had face to face time with this patient.
[2017-05-06] MEDS ORDERED: Sucralfate 1 GM TABLET PO SCH (11:30)
--- NOTE | 2017-05-06 18:49 | Internal Med Progress Note ---
Date of Encounter: 05/06/17 Time of Encounter: 09:00 - Assessment and plan (1) Acute blood loss anemia Status: Acute Assessment and plan: Monitor hemoglobin and hematocrit. Transfuse if hemoglobin is less than 7. Iron studies reviewed show iron deficiency anemia. We gave 400 mg of IV iron sucrose. Recommend iron rich diet outpatient. Follow-up CBC with PCP and one week. (2) Anxiety Status: Chronic Assessment and plan: Patient tolerated clonazepam well. Her anxiety symptoms have been well controlled. Sleep has improved. We will prescribe clonazepam on discharge. I advised the patient to not drive until she found out if taking clonazepam causes her any daytime somnolence or dizziness or any impairment and motor coordination. Psychiatry recommended discontinuing citalopram and trazodone and starting clonazepam. Vistaril can be used for sleep (3) Duodenal ulcer Status: Acute Assessment and plan: Follow-up with general surgeon in the office. Continue with PPI twice daily and Carafate. - Subjective Interval history: Patient tolerated clear liquid diet. Denies nausea and vomiting. Denies abdominal pain. Patient had upper endoscopy done 2 days ago found duodenal ulcer. She states that she takes citalopram for anxiety, denies symptoms of depression. She states that she takes trazodone for insomnia which started once she initiated treatment with citalopram. - Constitutional Vitals: Temp Pulse Resp BP Pulse Ox 98.1 F 87 20 114/80 99 05/06/17 10:42 05/06/17 10:42 05/06/17 10:42 05/06/17 10:42 05/06/17 10:42 General appearance: Present: cooperative, A&O X 3, pleasant, no acute distress, answers questions appropriately - Respiratory Respiratory exam: Present: CTAB. Absent: accessory muscle use, rales, rhonchi, wheezes - Cardiovascular Cardiovascular exam: Present: RRR, +S1, +S2. Absent: diastolic murmur, gallop, rubs, systolic murmur - GI/Abdominal GI/Abdominal exam: Present: normal bowel sounds, soft, no peritoneal signs. Absent: distended, tenderness Internal Medicine: Result - Labs CBC & Chem 7: 05/06/17 05:42 05/06/17 05:42 Labs: Short CBC 05/06/17 Range/Units 05:42 WBC 7.6 (4.3-11.1) K/mcL Hgb 7.9 L (11.5-15.4) g/dL Hct 24.7 L (35.3-44.9) % Plt Count 220 (140-400) K/mcL Neutrophils # 3.8 (1.6-8.9) K/mcL BMP 05/06/17 05:42 Sodium 142 Potassium 4.2 Chloride 114 H Carbon Dioxide 18 L BUN 9 Creatinine 0.69 Glucose 90 Calcium 9.0 Liver Function 05/06/17 Range/Units 05:42 Total Bilirubin 0.5 (0.3-1.0) mg/dL AST 16 (13-39) Units/L ALT 9 (7-52) Units/L Alkaline Phosphatase 56 (34-104) Units/L Albumin 3.4 L (3.5-5.7) g/dL Consult Discharge Plan - Plan Instructions: Sucralfate (By mouth), Pantoprazole (By mouth), Diet for Ulcers and Gastritis (GEN) Additional Instructions: Please take over the counter iron supplements daily. Take iron supplement with food with no other medications. Referrals: Juan Callahan DO [Partnered Physician] - 05/19/17 1:40 pm (hospital f/u; [facility]) Bria Matt CNP [Primary Care Provider] - 05/12/17 4:00 pm Prescriptions: Lactose-Reduced Food [Ensure Active Clear] 1 bottle PO TID #42 can Omeprazole [PriLOSEC] 40 mg PO BID #60 cap Sucralfate [Carafate] 1 gm PO QID #120 oral.susp
[2017-05-07 10:08] LABS: Thyroid Stimulating Hormone 5.443 mcIU/mL (0.340-5.600)
== END 2017-05-06 13:00 | disposition home or self-care (01) | DRG 378 ==
LOC: 3BNU → SUATTDRO 04:53
PROVIDERS: ADMIT Family Medicine; ATTEND Surgery
PROC: ENDOEBX (2017-05-04 14:00)